=== PATIENT | male | born 1990 | race Caucasian/White ===

== ENCOUNTER 2019-12-06 22:22 | Emergency (ER) | payer OTHER ==
[~2019-12-06] VITALS: Ht 190.5 cm; Wt 86.2 kg
== END 2019-12-06 22:46 | disposition home or self-care (01) ==
LOC: ED 22:22
DX: S61.201A Unspecified open wound of left index finger without damage to nail, initial encounter (principal); W26.8XXA Contact with other sharp object(s), not elsewhere classified, initial encounter; Y93.89 Activity, other specified; Y92.89 Other specified places as the place of occurrence of the external cause; Y99.8 Other external cause status